=== PATIENT | female | born 1935 | race Caucasian/White ===

== ENCOUNTER → 2016-08-02 | Outpatient (CLI) | payer MEDICARE, BC ==
[~2016-08-02] MED LIST: AMOXICILLIN875 MG PO; ASPIRIN LO-DOSE81 MG PO; FLORASTOR250 MG PO; FOSAMAX70 MG PO; METAMUCIL PACKE1 PKT; NITROSTAT0.4 MG SL; REFRESH PLUS OPHTH; TEARGEN1 BOT OPHTH; TYLENOL325 MG PO; VITAMIN D1000 UNIT PO
--- NOTE | ~2016-08-02 | ECHO ---
Transthoracic Echocardiography Report (TTE) Demographics Patient Name RENE SERRANO Date of Study 08/02/2016 Patient Number [id number] Visit Number [id number] Date of 1935 Room Number Gender Female Number Age 81 year(s) Referring Enrrique Tran Print Shop Helper Lissa Masters, Physician RT,RVT,RDCS Physician Interpreting Enrrique Tran Bag Filler Physician MD Supervising Ordering Enrrique Tran MD/MLP Physician MD Nurse Stress Typesetting Machine Tender Conclusions Contractility Score Summary Normal Left Ventricular contractility was noted. Summary Normal LV/RV size and systolic function. The estimated left ventricular ejection fraction is 65-70%. No significant valvular abnormalities. Diastolic assessment reveals Grade I diastolic dysfunction. Procedure Type of Study TTE procedure:2D Echocardiogram, M-Mode, Doppler , Color Doppler. Procedure Date Date: 08/02/2016 Start: 08:30 AM Study Location: Echo Lab Technical Quality: Adequate visualization Indications:Chest pain. Appropriate Use Criteria: 9 Patient Status: Routine HR: 88 bpm BP: 129/64 mmHg M-Mode/2D Measurements LV Diastolic Dimension: 4.15 cm LV Systolic Dimension: 2.33 cm LV Septum Diastolic: 0.88 cm LV PW Diastolic: 0.84 cm AV Cusp Separation: 1.2 cm Cardiac Output: 5.59 l/min LA Dimension: 2.3 cm LVOT: 1.9 cm EF Estimated: 65 % LVOT VTI: 22.4 cm LV Stroke volume: 63.48 ml Doppler Measurements AV Peak Velocity: 1.04 m/s MV Peak E-Wave: 0.73 m/s AV Peak Gradient: 4.33 mmHg MV Peak A-Wave: 0.82 m/s AV Mean Gradient: 2 mmHg MV E/A Ratio: 0.89 LVOT Peak Velocity: 0.97 m/s MV P1/2t: 88 msec TR Gradient:21.53 mmHg PV Peak Velocity: 1.06 m/s Estimated RAP:10 mmHg PV Peak Gradient: 4.49 mmHg Estimated RVSP: 32 mmHg Estimated PASP: 31.53 mmHg E' Septal Velocity: 0.07 m/s A' Septal Velocity: 0.13 m/s MV E/E' Ratio: 10.5 Findings Left Ventricle Normal left ventricle size and function. Diastolic assessment reveals Grade I diastolic dysfunction. Right Ventricle Normal right ventricle structure and function. Left Atrium Normal left atrial size. Right Atrium Normal right atrial size. Prominent Chiari network seen in the right atrium. Mitral Valve Normal mitral valve structure and function. Aortic Valve The aortic valve is mildly sclerotic. Tricuspid Valve Trivial tricuspid regurgitation by color Doppler. Pulmonic Valve Normal pulmonic valve structure and function. Pericardial Effusion No evidence of pericardial effusion. Miscellaneous Visualized portions of the aortic root and ascending aorta appear normal in size. Pleural Effusion No evidence of pleural effusion. Contractility Score LV regional wall motion:(0-Non visualized 1-Normal 2-Hypokinesis 3-Akinesis 4-Dyskinesis 5-Aneurysm) Signature dtt: NONA GUALLPA dtd: 08/02/16 [id number] Physician Self Edit
--- NOTE | ~2016-08-02 | ESTC ---
Cardiac Perfusion Imaging Demographics Patient Name ZACH Fields Gender Female Patient Number [id number] Race Visit Number [id number] Ethnicity [employer] ID Room Number Accession Number [id number] Height 63 inches Date of 1935 Weight 121 pounds Interpreting SHANTEL Child Alo Date of study 08/02/2016 Physician Enrrique Tran MD Supervising MD/MLP Enrrique Tran NM Technologist Ordering Physician Enrrique Tran Stress Fawn Downing MD outboard technician [facility] Stress ECG Reading Enrrique Tran Nurse Michaelle Childers RN Physician Medications Reviewed with Patient prior to Procedure. Procedure Admit Source:Other. Procedure Type: Nuclear Stress Test:Cardiolite Stress Test Procedure Start time: 08/02/2016 00:00 Indications: History of CAD and Chest pain. Risk Factors The patient risk factors include:prior PCI on 01/27/2011;former tobacco use, hypercholesterolemia, family history of premature CAD, dyslipidemia, prior RI and ( years not smokin). Conclusions Summary Perfusion Images: The overall quality of the study is good. Left ventricular cavity is noted to be normal on the stress and normal on the rest images. There is no evidence of abnormal lung activity. The right ventricle is not visualized an cannot be assessed. Impression ECG portion of lexiscan stress test is clinically negative for ischemia by diagnostic criteria. Myocardial perfusion imaging is normal. Calculated LVEF is 78% and TID ratio is 1.10. Overall left ventricular systolic function was normal without regional wall motion abnormalities. Recommendation Follow up in cardiology clinic as scheduled. Medical management. Stress Protocols Resting ECG NSR Pre-stress physical exam: Clear lungs Predicted HR: 141 bpm ECG Findings No ECG changes suggestive of ischemia. Arrhythmias No rhythm abnormality. Symptoms Shortness of breath. Stress Interpretation Appropriate hemodynamic response to Lexiscan. No significant ST-T wave changes with Lexiscan. ECG portion is negative for ischemia by diagnostic criteria. Imaging Results Summed scores - Summed stress score: 6 - Summed rest score: 0 - Summed difference score: 6 Stress ejection Ejection fraction:79 % EDV :47 ml ESV :10 ml Stroke volume :37 ml LV mass :84 gr Imaging Protocols Rest Stress Isotope:Tc99m Sestamibi IV Isotope: Tc99m Sestamibi IV Isotope dose:9.1 mCi Isotope dose:28.8 mCi Date:08/02/2016 06:56 Date:08/02/2016 08:16 Technique: SPECT Technique: Gated Supine SPECT Supine Scan Time:30 minutes post injection Scan Time:45-60 minutes post injection Procedure Medications - Regadenoson (Lexiscan) 0.4 mg IV over 10-15 sec. I.V. . Medications administered per verbal order and read back to physician prior to administration. Medical History Admission Data Admission date: 08/02/2016 Admission Time: 06:19 Hospital Status: Outpatient. Signatures dtt: NONA GUALLPA dtd: 08/02/16 [facility] Physician Self Edit
[2016-08-02 07:04] LABS: ALBUMIN 3.9 gm/dL (3.5-5.0); ANION GAP 10.3 (10.0-19.0); CALCIUM 9.2 mg/dL (8.5-10.5); CREATININE 0.9 mg/dL (0.5-1.1); POTASSIUM 4.3 mMol/L (3.7-5.1); TOTAL BILIRUBIN 0.4 mg/dL (0.0-1.5)
== END | disposition disaster alternative care site (69) ==
LOC: GLAB 06:19 → GRAD 07:00
PROVIDERS: Internal Medicine Interventional Cardiology
DX: I25.10 Atherosclerotic heart disease of native coronary artery without angina pectoris (principal); E78.5 Hyperlipidemia, unspecified; E78.00 Pure hypercholesterolemia, unspecified; I25.2 Old myocardial infarction; I51.89 Other ill-defined heart diseases; R07.9 Chest pain, unspecified; Z87.891 Personal history of nicotine dependence; Z82.49 Family history of ischemic heart disease and other diseases of the circulatory system
CPT/HCPCS: A9500; J2785

== ENCOUNTER → 2016-11-18 | Outpatient (CLI) | payer MEDICARE, BC ==
[2016-11-18 14:51] LABS: ALBUMIN 3.8 gm/dL (3.5-5.0); CALCIUM 9.2 mg/dL (8.5-10.5); CREATININE 0.9 mg/dL (0.5-1.1)
[2016-11-18 14:58] LABS: TOTAL BILIRUBIN 0.5 mg/dL (0.0-1.5)
== END | disposition disaster alternative care site (69) ==
LOC: LNHI 14:23
PROVIDERS: Internal Medicine Interventional Cardiology
DX: I25.110 Atherosclerotic heart disease of native coronary artery with unstable angina pectoris (principal); I70.211 Atherosclerosis of native arteries of extremities with intermittent claudication, right leg; E78.00 Pure hypercholesterolemia, unspecified